=== PATIENT | male | born 1980 | race Caucasian/White ===

== ENCOUNTER 2019-07-27 08:53 | Emergency (ER) | payer OTHER ==
[~2019-07-27] VITALS: Ht 172.7 cm; Wt 74.4 kg
[2019-07-27 08:53] VITALS: BP_SYST 149
[2019-07-27 09:53] LABS: BASOPHILS % (AUTO) 0.1 % (0.0-2.0); HEMATOCRIT 29.1 % (36-54); HEMOGLOBIN 9.9 g/dL (14.0-18.0); LYMPHOCYTES # (AUTO) 0.8 K/uL (1.0-5.5); LYMPHOCYTES % (AUTO) 6.8 % (20.5-51.5); MEAN CORPUSCULAR HEMOGLOBIN 32 pg (27-31); MEAN CORPUSCULAR HGB CONC 34 % (32-36); MEAN CORPUSCULAR VOLUME 95 fL (79.0-98.0); MONOCYTES # (AUTO) 1.5 K/uL (0.0-1.0); MONOCYTES % (AUTO) 12.6 % (1.7-9.3); NEUTROPHILS # (AUTO) 9.8 K/uL (1.8-7.7); NEUTROPHILS % (AUTO) 80.5 % (40.0-70.0); PLATELET COUNT (AUTO) 136 K/uL (130-430); RED BLOOD CELL COUNT(AUTO) 3.08 MIL/uL (4.2-6.2); WHITE BLOOD COUNT (AUTO) 12.2 K/uL (4.8-10.8)
[2019-07-27 09:57] LABS: ANION GAP 12 (5-15); CALCIUM 9.1 mg/dL (8.4-11.0); CHLORIDE 89 mmol/L (98-107); CREATININE 1.21 mg/dL (0.55-1.30); GLUCOSE 128 mg/dL (70-99); POTASSIUM 3.8 mmol/L (3.5-5.1); SODIUM SERUM 128 mmol/L (136-145); UREA NITROGEN, BLOOD 25 mg/dL (8-21)
[2019-07-27 10:00] LABS: GFR AFRICAN AMERICAN 86 mL/min (>90)
[2019-07-27] MEDS ORDERED: LORazepam 2 MG/ML VIAL IVP ONE ×3 (10:00→17:45)
[2019-07-27] MEDS ORDERED: NACL 0.9% 2,000 ML IV ONE (10:00)
[2019-07-27] MEDS ORDERED: FOLIC ACID 1 MG, THIAMINE HCL 100 MG, MAGNESIUM SULFATE 1 GM, MVI 10 ML in NACL 0.9% 1,... IV ONE (10:00)
[2019-07-27 10:12] LABS: PROTHROMBIN TIME 10.3 SECS (9.5-12.5)
[2019-07-27 10:13] LABS: BILIRUBIN,URINE 2+ (NEGATIVE); BLOOD, URINE 2+ (NEGATIVE); CLARITY/URINE CLEAR (CLEAR); COLOR,URINE BROWN (YELLOW); GLUCOSE,URINE NEGATIVE (NEGATIVE); KETONES,URINE 1+ (NEGATIVE); LEUKOCYTE ESTERASE ,URINE NEGATIVE (NEGATIVE); NITRITE, URINE POSITIVE (NEGATIVE); PROTEIN URINE 2+ (NEGATIVE)
[2019-07-27 10:13] LABS: ALANINE AMINOTRANSFERASE 127 U/L (12-78); ALBUMIN 3.7 g/dL (3.4-4.8); AMYLASE 54 U/L (0-100); ASPARTATE AMINOTRANSFERASE 441 U/L (10-37); LIPASE 195 U/L (73-393); TOTAL BILIRUBIN 2.3 mg/dL (0.0-1.0)
[2019-07-27] MEDS ORDERED: FOLIC ACID 1 MG, MVI 10 ML in NACL 0.9% 1,000 ML IV ONE ×2 (10:15→10:30)
[2019-07-27] MEDS ORDERED: THIAMINE HCL 100 MG, MAGNESIUM SULFATE 1 GM in NS 100 ML IV ONE (10:15)
[2019-07-27] MEDS ORDERED: MAGNESIUM SULFATE 1 GM/2 ML VIAL ONE (10:21)
[2019-07-27] MEDS ORDERED: FOLIC ACID 5 MG/ML VIAL IV ONE (10:21)
[2019-07-27] MEDS ORDERED: THIAMINE HCL 100 MG/ML VIAL ONE (10:21)
[2019-07-27] MEDS ORDERED: MVI 10 ML VIAL IV ONE (10:21)
[2019-07-27 10:28] LABS: BARBITURATE, URINE NEGATIVE (NEG <=200); BENZODIAZEPINE, URINE NEGATIVE (NEG <=150); CANNABINOID, URINE NEGATIVE (NEG <=50); COCAINE, URINE NEGATIVE (NEG <=150); METHAMPHETAMINES SCREEN,URINE NEGATIVE (NEG <=500); OPIATE, URINE NEGATIVE (NEG <=100); PHENCYCLIDINE SCREEN,URINE NEGATIVE (NEG <=25); UR TRICYCLIC ANTIDEPRESSANTS NEGATIVE (NEG <=300); URINE AMPHETAMINE NEGATIVE (NEG <=500); URINE METHADONE NEGATIVE (NEG <=200); URINE OXYCODONE SCREEN NEGATIVE (NEG <=100); URINE PROPOXYPHENE SCREEN NEGATIVE (NEG <=300)
[2019-07-27 10:56] LABS: CREATINE KINASE MB 15.5 ng/mL (0-3.6)
[2019-07-27 11:03] LABS: BACTERIA,URINE RARE /HPF (None Seen); WBC,URINE 0-3 /HPF (0-3)
[2019-07-27 11:06] LABS: HYALINE CASTS, URINE 0-10 /LPF (None Seen); MUCUS,URINE 4+ /LPF (None Seen)
[2019-07-27] MEDS ORDERED: NACL 0.9% 1,000 ML IV ONE (17:00)
[2019-07-27] MEDS ORDERED: HALOPERIDOL LACTATE 5 MG/ML VIAL IVP ONE (17:45)
[2019-07-27] MEDS ORDERED: DIPHENHYDRAMINE INJ 50 MG/ML VIAL IVP ONE (17:45)
[2019-07-27] MEDS ORDERED: LORazepam 2 MG/ML VIAL ONE (18:01)
[2019-07-27] MEDS ORDERED: HALOPERIDOL LACTATE 5 MG/ML VIAL ONE (18:02)
[2019-07-27] MEDS ORDERED: DIPHENHYDRAMINE INJ 50 MG/ML VIAL ONE (18:02)
[2019-07-27 19:22] VITALS: BP_SYST 147
== END 2019-07-27 19:22 | disposition short-term general hospital (02) ==
LOC: SED 08:53
DX: S42.291A Other displaced fracture of upper end of right humerus, initial encounter for closed fracture (principal); M62.82 Rhabdomyolysis; K70.10 Alcoholic hepatitis without ascites; E87.1 Hypo-osmolality and hyponatremia; F10.10 Alcohol abuse, uncomplicated; X58.XXXA Exposure to other specified factors, initial encounter; Y93.89 Activity, other specified; Y92.89 Other specified places as the place of occurrence of the external cause; Y99.8 Other external cause status; Y90.0 Blood alcohol level of less than 20 mg/100 ml
CPT/HCPCS: 36415; 71045; 73030; 73060; 80053; 80307; 81000; 82150; 82550; 82553; 83605; 83690; 85025; 85610; 85730; 87040; 96365; 96368; 96375; 96376; 99285; G0482; J1200; J1630; J2060; J3411; J3475; J3490; J7030